=== PATIENT | female | born 2000 | race Caucasian/White ===

== ENCOUNTER 2022-07-10 18:52 | Inpatient (IN) ==
[2022-07-10] MEDS ORDERED: METHYLERGONOVINE 0.2 MG/1 ML AMP IM PRN (19:21)
[2022-07-10] MEDS ORDERED: ONDANSETRON 4 MG/2 ML VIAL IV PRN (19:21)
[2022-07-10] MEDS ORDERED: LACTATED RINGERS 500 ML IV PRN (19:21)
[2022-07-10] MEDS ORDERED: MEPERIDINE 25 MG/1 ML VIAL IV PRN (19:21)
[2022-07-10] MEDS ORDERED: miSOPROStoL 200 MCG TABLET RECTAL PRN (19:21)
[2022-07-10] MEDS ORDERED: TRANEXAMIC ACID 1,000 MG in SODIUM CHLORIDE 0.9% 100 ML IV PRN (19:21)
[2022-07-10] MEDS ORDERED: CARBOPROST TROMETHAMINE 250 MCG/ML AMP IM PRN (19:21)
[2022-07-10] MEDS ORDERED: OXYTOCIN/LR 20 UNIT/1,000 ML BAG IV ONE (19:21)
[2022-07-10] MEDS ORDERED: LACTATED RINGERS 250 ML IV ONE ×2 (19:21→20:00)
[2022-07-10] MEDS ORDERED: LACTATED RINGERS 1,000 ML IV SCH (19:30)
[2022-07-10 20:05] LABS: Basophils # 0.1 10*3/uL (0.0-0.2); Basophils % 0.3 % (0.0-0.8); Eosinophils # 0.1 10*3/uL (0.0-0.87); Eosinophils % 0.4 % (0.00-10.9); Hematocrit 36.5 VOL% (35.7-47.0); Hemoglobin 12.1 GM/DL (12.0-16.0); Immature Granulocytes % 0.4 %; Immature Granulocytes Absolute 0.06 #; Lymphocytes # 3.4 10*3/uL (1.4-4.0); Lymphocytes % 23.8 % (21.3-54.2); Mean Corpuscular HGB Conc 33.2 GM/DL (32-36); Mean Corpuscular Volume 79.7 FL (87-102); Mean Platelet Volume 12.5 FL (9.6-12.0); Monocytes # 0.9 10*3/uL (0.11-0.8); Monocytes % 6.1 % (1.7-12.7); Platelet Count 245 T/CUMM (130-400); Red Blood Count 4.58 MC/CUMM (3.8-5.5); Red Cell Distribution Width 13.2 % (9.3-17.3); White Blood Count 14.3 T/CUMM (4-12)
[2022-07-10 20:36] LABS: Cord Venous Blood HCO3 22.2 MMOL/L; Cord Venous Blood PCO2 41.8 MMHG; Cord Venous Blood PO2 31.1
[2022-07-10] MEDS ORDERED: INFLUENZA VIRUS VACCINE 0.5 ML SYRINGE IM ONE (21:07)
[2022-07-11 04:29] LABS: Basophils % 0.2 % (0.0-0.8); Eosinophils % 0.3 % (0.00-10.9); Hematocrit 30.8 VOL% (35.7-47.0); Hemoglobin 10.2 GM/DL (12.0-16.0); Immature Granulocytes % 0.5 %; Immature Granulocytes Absolute 0.06 #; Lymphocytes # 2.1 10*3/uL (1.4-4.0); Lymphocytes % 16.8 % (21.3-54.2); Mean Corpuscular HGB Conc 33.1 GM/DL (32-36); Mean Corpuscular Volume 80.4 FL (87-102); Mean Platelet Volume 12.4 FL (9.6-12.0); Monocytes # 0.9 10*3/uL (0.11-0.8); Monocytes % 6.9 % (1.7-12.7); Neutrophils % 75.3 % (38.7-73.9); Platelet Count 175 T/CUMM (130-400); Red Blood Count 3.83 MC/CUMM (3.8-5.5); White Blood Count 12.4 T/CUMM (4-12)
[2022-07-11] MEDS ORDERED: DOCUSATE SODIUM 100 MG CAPSULE PO PRN (07:33)
[2022-07-11] MEDS: MULTIVITAMIN (PRENATAL) TABLET PO SCH (08:37)
[2022-07-11] MEDS: IBUPROFEN 800 MG TABLET PO PRN ×2 (08:39→22:44)
[2022-07-11] MEDS: ACETAMINOPHEN/CODEINE 300-30 MG TABLET PO PRN ×2 (12:34→22:43)
[2022-07-11] MEDS ORDERED: WITCH HAZEL PADS 100/JAR TOP PRN (14:41)
[2022-07-11] MEDS ORDERED: BENZOCAINE 20%/MENTHOL 0.5% SPRAY 56 GM CAN TOP PRN (14:42)
[2022-07-12] MEDS: DIPHENOXYLATE/ATROPINE 2.5-0.025 MG TABLET PO PRN ×2 (07:12→11:56)
[2022-07-12 09:12] VITALS: BP 113/78
[2022-07-12] MEDS ORDERED: INFLUENZA VIRUS VACCINE 0.5 ML SYRINGE IM ONE (11:20)
[2022-07-12] MEDS ORDERED: DIPH/TET/ACEL PERT BOOSTER VACCINE 0.5 ML VIAL IM ONE (11:21)
[2022-07-12] MEDS: MULTIVITAMIN (PRENATAL) TABLET PO SCH (13:20)
== END 2022-07-12 13:16 | disposition home or self-care (01) | DRG 560 ==
LOC: N.LD 18:52 → N.OB 22:38
PROVIDERS: ADMIT Obstetrics & Gynecology; ATTEND Obstetrics & Gynecology